=== PATIENT | male | born 1990 | race Caucasian/White ===

== ENCOUNTER 2016-06-16 23:03 | Emergency (ER) | payer SELFPAY ==
[2016-06-16 23:13] VITALS: BP 154/89; PULSE 79; RESP 14; TEMP 97.4; O2SAT 97
--- NOTE | 2016-06-17 00:07 | C.PDOC ---
History Of Present Illness Patient is a 26 year old male who presents to the ER with a complaint of right sided back pain with radiation to the right buttocks and leg for the past 2 weeks. Patient also reports having paresthesia. 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 Denies urinary incontinence, bowel incontinence, or recent trauma. Time Seen by Provider: 06/16/16 23:20 Chief Complaint (Nursing): Lower Extremity Problem/Injury History Per: Patient History/Exam Limitations: no limitations Onset/Duration Of Symptoms: Days (2 weeks) Current Symptoms Are (Timing): Still Present Recent travel outside of the [place]: No Past Medical History Reviewed: Historical Data, Nursing Documentation, Vital Signs Vital Signs: Last Vital Signs Temp 97.4 F L 06/16/16 23:11 Pulse 79 06/16/16 23:11 Resp 14 06/16/16 23:11 BP 154/89 H 06/16/16 23:11 Pulse Ox 97 06/17/16 02:40 - Medical History PMH: Diabetes, HTN, Hypercholesterolemia Surgical History: No Surg Hx Family History: States: Unknown Family Hx - Social History Hx Tobacco Use: No Hx Alcohol Use: No Hx Substance Use: No - Immunization History Hx Tetanus Toxoid Vaccination: No Hx Influenza Vaccination: No Hx Pneumococcal Vaccination: No Review Of Systems Gastrointestinal: Negative for: Other (Bowel incontinence) Genitourinary: Negative for: Incontinence Musculoskeletal: Positive for: Back Pain (Right sided), Leg Pain (Right), Other (Right buttock pain) Physical Exam - Physical Exam Appears: Well, Non-toxic, No Acute Distress Skin: Normal Color, Warm, Dry Head: Atraumatic, Normacephalic Eye(s): bilateral: Normal Inspection, EOMI Nose: Normal Oral Mucosa: Moist Neck: Normal, Normal ROM, No Paracervical Tenderness, No Step Off Deformity, Supple Chest: Symmetrical Cardiovascular: Rhythm Regular Respiratory: Normal Breath Sounds Gastrointestinal/Abdominal: Soft, No Tenderness Back: No CVA Tenderness, No Vertebral Tenderness, Paraspinal Tenderness (right sided, lumbar and buttocks) Extremity: Normal ROM Neurological/Psych: Oriented x3, Normal Speech, Normal Motor, Normal Sensation ( (-) Saddle anesthesia. Though pt notes right leg feels "different") Gait: Steady ED Course And Treatment O2 Sat by Pulse Oximetry: 97 (Room air) Pulse Ox Interpretation: Normal Progress Note: Toradol IVP administered. LS spine x-ray ordered, no acute abnormalies found in results. On reevaluation, patient's pain has improved and his is able to ambulate normally. Case discussed with Dr. Rivers, we both agreed to discharge patient home, patient advised to follow up with PMD. Disposition - Disposition Referrals: [facility] at [facility] [Outside] Disposition: HOME/ ROUTINE Disposition Time: 00:05 Condition: STABLE Additional Instructions: Follow up with your PM Din 1-2 days for re-evaluation and possible MRI. Return to ER right away if symptoms persist or worsen, including but limited to unable to control your urine or bowel movements or change in sensation. Prescriptions: Cyclobenzaprine [Cyclobenzaprine HCl] 10 mg PO TID #20 tab Naproxen [Naprosyn] 1 tab PO BID PRN #20 tab PRN Reason: Pain Instructions: Sciatica (ED) - Clinical Impression Clinical Impression: Sciatica of right side - Scribe Statement The provider has reviewed the documentation as recorded by the Ottonielibchristiano Gonzales All medical record entries made by the Ottonielibchristiano were at my direction and personally dictated by me. I have reviewed the chart and agree that the record accurately reflects my personal performance of the history, physical exam, medical decision making, and the department course for this patient. I have also personally directed, reviewed, and agree with the discharge instructions and disposition.
--- NOTE | 2016-06-17 09:30 | RAD ---
PROCEDURE: Radiographs of the Lumbar Spine. HISTORY: pain COMPARISON: No prior. FINDINGS: BONES: Normal alignment. No listhesis. No fracture. DISC SPACES: Unremarkable. OTHER FINDINGS: None. IMPRESSION: No radiographic evidence of acute fracture or subluxation.
== END 2016-06-17 00:12 | disposition home or self-care (01) ==
LOC: C.ER 23:03
DX: M54.31 Sciatica, right side (principal)
CPT/HCPCS: 72100; 96372; 99284; J1885

== ENCOUNTER 2017-04-19 18:50 | Emergency (ER) | payer OTHER ==
[2017-04-19 18:56] VITALS: BMI 33.1
[2017-04-19 18:59] VITALS: BP 143/83; PULSE 110; RESP 20; TEMP 98.1; O2SAT 98
[2017-04-19] MEDS ORDERED: Tetracaine 0.5% Ophth (OR ONLY) ONE (19:22)
[2017-04-19] MEDS ORDERED: Fluorescein 1 mg Ophthalmic Strip ONE (19:22)
--- NOTE | 2017-04-19 19:44 | C.PDOC ---
Time Seen by Provider: 04/19/17 19:11 Chief Complaint (Nursing): Eye Problem Past Medical History Vital Signs: Last Vital Signs Temp 98.1 F 04/19/17 18:56 Pulse 110 H 04/19/17 18:56 Resp 20 04/19/17 18:56 BP 143/83 04/19/17 18:56 Pulse Ox 98 04/19/17 18:56 - Medical History PMH: Diabetes, HTN, Hypercholesterolemia Denies: Chronic Kidney Disease Family History: States: Unknown Family Hx Denies: [place], CAD - Social History Hx Tobacco Use: No Hx Alcohol Use: No Hx Substance Use: No - Immunization History Hx Tetanus Toxoid Vaccination: No Hx Influenza Vaccination: No Hx Pneumococcal Vaccination: No ED Course And Treatment O2 Sat by Pulse Oximetry: 98 Disposition - Disposition
--- NOTE | 2017-04-19 19:44 | C.PDOC ---
History Of Present Illness 27-year-old male, presents to the emergency department with complaints of tearing and discomfort in left eye. 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 Notes he wears glasses.Denies diplopia, headache. n/v, loc, bleeding. Time Seen by Provider: 04/19/17 19:11 Chief Complaint (Nursing): Eye Problem History Per: Patient History/Exam Limitations: no limitations Past Medical History Reviewed: Historical Data, Nursing Documentation, Vital Signs Vital Signs: Last Vital Signs Temp 98.1 F 04/19/17 18:56 Pulse 110 H 04/19/17 18:56 Resp 20 04/19/17 20:06 BP 143/83 04/19/17 18:56 Pulse Ox 98 04/19/17 21:19 - Medical History PMH: Diabetes, HTN, Hypercholesterolemia Family History: States: No Known Family Hx - Social History Hx Tobacco Use: No Hx Alcohol Use: No Hx Substance Use: No - Immunization History Hx Tetanus Toxoid Vaccination: No Hx Influenza Vaccination: No Hx Pneumococcal Vaccination: No Review Of Systems Eyes: Positive for: Pain Physical Exam - Physical Exam Appears: Non-toxic, No Acute Distress Skin: Warm, Dry, No Rash Head: Normacephalic Eye(s): bilateral: PERRL, EOMI, right: Other ((+) fluorescein uptake to right eye, no hyphema, no discharge, no injection), left: Normal Inspection Nose: Normal Oral Mucosa: Moist Neck: Normal ROM, Supple Chest: Symmetrical Respiratory: No Accessory Muscle Use ED Course And Treatment O2 Sat by Pulse Oximetry: 98 (RA) Pulse Ox Interpretation: Normal Progress Note: Discussed wound care and instructed to follow up with eye doctor tomorrow for re-evalaution. Disposition - Disposition Referrals: Ishan Espinal MD [Staff Provider] - Disposition: HOME/ ROUTINE Disposition Time: 19:45 Condition: STABLE Additional Instructions: you were diagnosed with the cut in your eye. You should follow up with the eye doctor tomorrow for further evaluation. Return to ER if symptoms persist or worsen. Prescriptions: Ofloxacin Ophth 0.3% [Ocuflox Ophth 0.3%] 1 drop OU QID #1 bottle Instructions: Corneal Abrasion Forms: [employer] (Bangladeshi) - Clinical Impression Clinical Impression: Corneal abrasion - Scribe Statement The provider has reviewed the documentation as recorded by the Scribe (Katherine Little) All medical record entries made by the Scribe were at my direction and personally dictated by me. I have reviewed the chart and agree that the record accurately reflects my personal performance of the history, physical exam, medical decision making, and the department course for this patient. I have also personally directed, reviewed, and agree with the discharge instructions and disposition.
== END 2017-04-19 20:06 | disposition home or self-care (01) ==
LOC: C.ER 18:50
DX: S05.02XA Injury of conjunctiva and corneal abrasion without foreign body, left eye, initial encounter (principal); W50.0XXA Accidental hit or strike by another person, initial encounter; Y93.67 Activity, basketball

== ENCOUNTER 2017-12-10 20:25 | Emergency (ER) | payer SELFPAY ==
[2017-12-10 20:25] VITALS: BMI 33.1
[2017-12-10 20:44] VITALS: BP 165/101; PULSE 96; TEMP 98.5; O2SAT 98
--- NOTE | 2017-12-10 20:54 | C.PDOC ---
History Of Present Illness 27 year old male presents to the ED for evaluation of a frontal headache which began earlier today. Patient states symptoms are mostly behind right left>right eye. He refilled his blood pressure medication today. Patient denies fever, chills, and nasal discharge. Time Seen by Provider: 12/10/17 20:45 Chief Complaint (Nursing): Headache History Per: Patient History/Exam Limitations: no limitations Onset/Duration Of Symptoms: Hrs Current Symptoms Are (Timing): Still Present Quality: Aching Past Medical History Reviewed: Historical Data, Nursing Documentation, Vital Signs Vital Signs: Last Vital Signs Temp 98.5 F 12/10/17 20:31 Pulse 96 H 12/10/17 20:31 Resp 20 12/10/17 20:31 BP 165/101 H 12/10/17 20:31 Pulse Ox 98 12/10/17 20:31 - Medical History PMH: Diabetes, HTN, Hypercholesterolemia Denies: Chronic Kidney Disease Surgical History: No Surg Hx Family History: States: Unknown Family Hx Denies: [place], CAD - Social History Hx Tobacco Use: No Hx Alcohol Use: No Hx Substance Use: Yes - Immunization History Hx Tetanus Toxoid Vaccination: No Hx Influenza Vaccination: No Hx Pneumococcal Vaccination: No Review Of Systems Constitutional: Negative for: Fever, Chills ENT: Negative for: Nose Discharge Neurological: Positive for: Headache Physical Exam - Physical Exam Appears: Non-toxic, No Acute Distress Skin: Normal Color, Warm, Dry Head: Atraumatic, Normacephalic Eye(s): bilateral: Normal Inspection Ear(s): Bilateral: Normal Nose: No Discharge, Other (increased nasal pasage erythema, left>right. kissing turbinates ) Throat: Normal, No Erythema, No Exudate Neck: Supple Chest: Symmetrical, No Deformity, No Tenderness Cardiovascular: Rhythm Regular, No Murmur Respiratory: Normal Breath Sounds, No Rales, No Rhonchi, No Wheezing Extremity: Normal ROM, Capillary Refill (less than 2 seconds ) Neurological/Psych: Oriented x3, Normal Speech, Normal Cognition ED Course And Treatment O2 Sat by Pulse Oximetry: 98 (on RA) Pulse Ox Interpretation: Normal Progress Note: Motrin PO, Vasotec PO and Prednisone PO given. Medical Decision Making Medical Decision Making: sinus headache no photophobia Bp elevated due to BLAKE normal neuro Disposition Doctor Will See Patient In The: Office Counseled Patient/Family Regarding: Studies Performed, Diagnosis - Disposition Referrals: [facility] [Outside] [facility] [Outside] [facility] [Outside] [facility] [Outside] Disposition: HOME/ ROUTINE Disposition Time: 20:54 Condition: GOOD Additional Instructions: Flonase 1 spray to each nostril every 12 hours- decreases nasal passage inflammation Motrin/advil/Ibuprofen 600 mg every 12 hours good for sinus headache pain pseudafed 30 mg every 6 hours as needed may increase blood pressure slightly. excellent nasal passage decongestant You were given motrin 600 mg and Prednisone 20 mg in ED the prednisone is NOT continued due to diabetes and the Flonase will be active by tomorrow Follow-up in our outpatient Clinic as needed. Prescriptions: Fluticasone Nasal [Flonase] 1 actuation NS DAILY #1 spr Instructions: Headache, Adult Forms: [employer] (Korean) - Clinical Impression Clinical Impression: Headache - Scribe Statement The provider has reviewed the documentation as recorded by the Scribe (Giselle Henderson) Provider Attestation: All medical record entries made by the Scribe were at my direction and personally dictated by me. I have reviewed the chart and agree that the record accurately reflects my personal performance of the history, physical exam, medical decision making, and the department course for this patient. I have also personally directed, reviewed, and agree with the discharge instructions and disposition.
[2017-12-10 21:11] VITALS: RESP 16
== END 2017-12-10 21:10 | disposition home or self-care (01) ==
LOC: C.ER 20:25
DX: R51 Headache (principal)

== ENCOUNTER 2017-12-15 10:10 | Emergency (ER) | payer OTHER ==
[2017-12-15 10:10] VITALS: BMI 33.1
[2017-12-15 10:18] VITALS: O2SAT 97
[2017-12-15] MEDS ORDERED: DiphenhydrAMINE 50 mg/ml Inj IVP STA (10:57)
--- NOTE | 2017-12-15 10:57 | C.PDOC ---
History Of Present Illness 27-year-old male, PMHx includes Hypertension and Diabetes, presents to the emergency department with complaints of a frontal headache which is associated with photophobia and ongoing for the past few days. Patient states he was seen in ED five days ago, and given a medication, but symptoms have persisted. Patient states symptoms are mostly behind left>right eye. Patient denies fever, chills, neck pain, numbness, weakness, vision changes, or trauma. Time Seen by Provider: 12/15/17 10:24 Chief Complaint (Nursing): Headache History Per: Patient History/Exam Limitations: no limitations Pain Scale Rating Of: 7 Quality: Aching Associated Symptoms: Photophobia Recent travel outside of the [place]: No Past Medical History Reviewed: Historical Data, Nursing Documentation, Vital Signs Vital Signs: Last Vital Signs Temp 97.8 F 12/15/17 10:14 Pulse 87 12/15/17 10:14 Resp 19 12/15/17 10:14 BP 156/94 H 12/15/17 10:14 Pulse Ox 97 12/15/17 10:14 - Medical History PMH: Diabetes, HTN, Hypercholesterolemia Family History: States: No Known Family Hx Denies: [place], CAD - Social History Hx Tobacco Use: No Hx Alcohol Use: No Hx Substance Use: No - Immunization History Hx Tetanus Toxoid Vaccination: No Hx Influenza Vaccination: No Hx Pneumococcal Vaccination: No Review Of Systems Constitutional: Negative for: Fever Gastrointestinal: Negative for: Nausea, Vomiting Musculoskeletal: Negative for: Neck Pain, Back Pain Neurological: Positive for: Headache. Negative for: Weakness, Numbness Physical Exam - Physical Exam Appears: Non-toxic, No Acute Distress Skin: Warm, Dry, No Rash Head: Normacephalic, Tenderness (frontal sinus tenderness), Other (No temporal artery tenderness) Eye(s): bilateral: Normal Inspection, PERRL, EOMI Ear(s): Bilateral: Normal Nose: Normal Oral Mucosa: Moist Lips: Normal Appearing Throat: No Erythema, No Exudate Neck: Normal ROM, Supple Lymphatic: Normal Exam Chest: Symmetrical, No Tenderness Cardiovascular: Rhythm Regular, No Friction Rub, No Murmur Respiratory: Normal Breath Sounds, No Accessory Muscle Use, No Stridor, No Whe ezing Gastrointestinal/Abdominal: Soft, No Tenderness Back: Normal Inspection, No CVA Tenderness Extremity: Normal ROM, No Swelling Neurological/Psych: Oriented x3, Normal Speech, Normal Cognition, Normal Cranial Nerves, Normal Motor Gait: Steady ED Course And Treatment - Laboratory Results Result Diagrams: 12/15/17 11:18 12/15/17 11:18 O2 Sat by Pulse Oximetry: 97 Pulse Ox Interpretation: Normal (RA) Medical Decision Making Medical Decision Making: Old records reviewed, the patient was seen in the ED on 12/10/17 for similar symptoms. The patient was diagnosed with sinusitis and discharged home with a nasal spray and medications for pain. Labs are WNLs. CT HEad shows no acute abnormalities but possible sinusitis. Will treat with augmentin. On re-exam, the patient reports improvement of symptoms. Lungs are CTA, heart is RRR, Abdomen is soft, non-tender and thje patient is tolerating PO well. Pt is ambulatory in the ED with steady gait. Follow up with the medical doctor within 1-2 days. Return if worsened. Disposition - Disposition Referrals: Beau Groves MD [Staff Provider] - Irvin Franz MD [Staff Provider] - Disposition: HOME/ ROUTINE Disposition Time: 13:39 Condition: STABLE Additional Instructions: Follow up with the medical doctor within 1-2 days. Return if worsened. Prescriptions: Amoxicillin/Clavulanate [Augmentin 875 MG-125 MG] 1 tab PO BID #14 tab Ibuprofen [Motrin] 600 mg PO TID #21 tab Instructions: Sinusitis, Adult (DC) Forms: [facility] (Kinyarwanda) - Clinical Impression Clinical Impression: Sinusitis - Scribe Statement The provider has reviewed the documentation as recorded by the Scribe (Katherine Little) All medical record entries made by the Scribe were at my direction and personally dictated by me. I have reviewed the chart and agree that the record accurately reflects my personal performance of the history, physical exam, [facility] decision making, and the department course for this patient. I have also personally directed, reviewed, and agree with the discharge instructions and disposition.
[2017-12-15] MEDS ORDERED: Sodium Chloride 0.9% 500 ML IV ONE (10:58)
[2017-12-15] MEDS ORDERED: DiphenhydrAMINE 50 mg/ml Inj ONE (11:08)
[2017-12-15] MEDS ORDERED: Sodium Chloride 0.9% 1,000 ML ONE (11:08)
[2017-12-15 11:22] LABS: BASO # 0.1 K/uL (0.0-0.2); BASO % 1.3 % (0.0-2.0); EOS # 0.1 K/uL (0.0-0.7); EOS % 1.5 % (0.0-4.0); HEMOGLOBIN 14.5 g/dL (12.0-18.0); LYMPH # 2.1 K/uL (1.0-4.3); MEAN CELL VOLUME 66.7 fL (80.0-94.0); MEAN CORPUSCULAR HEMOGLOBIN 21.4 pg (27.0-31.0); MEAN PLATELET VOLUME 7.3 fL (7.2-11.7); MONO # 0.9 K/uL (0.0-0.8); MONO % 9.6 % (0.0-10.0); NEUT # 5.8 K/uL (1.8-7.0); NEUT % 64.6 % (50.0-75.0); NRBC % 0.1 % (0.0-2.0); RBC 6.81 Mil/uL (4.40-5.90); RED CELL DISTRIBUTION WIDTH 14.7 % (11.5-14.5); WHITE BLOOD COUNT 8.9 K/uL (4.8-10.8)
[2017-12-15 11:38] LABS: ALB/GLOB RATIO 1.3 (1.0-2.1); ALBUMIN 4.4 g/dL (3.5-5.0); ALT/SGPT 23 U/L (21-72); AST/SGOT 26 U/L (17-59); BLOOD UREA NITROGEN 13 mg/dL (9-20); CALCIUM 9.2 mg/dl (8.6-10.4); GFR NON-AFRICAN AMERICAN > 60
[2017-12-15 12:08] VITALS: BP 138/74; PULSE 84; RESP 20; TEMP 98.9
--- NOTE | 2017-12-15 13:12 | CT ---
Date of service: 12/15/2017 PROCEDURE: CT HEAD WITHOUT CONTRAST. HISTORY: Headache x1 week COMPARISON: None available. TECHNIQUE: Axial computed tomography images were obtained through the head/brain without intravenous contrast. Radiation dose: Total exam DLP = 1124.64 mGy-cm. This CT exam was performed using one or more of the following dose reduction techniques: Automated exposure control, adjustment of the mA and/or kV according to patient size, and/or use of iterative reconstruction technique. FINDINGS: HEMORRHAGE: No intracranial hemorrhage. BRAIN: No mass effect or edema. No atrophy or chronic microvascular ischemic changes. VENTRICLES: Unremarkable. No hydrocephalus. CALVARIUM: Unremarkable. PARANASAL SINUSES: Frontal sinuses are hypoplastic/underpneumatized.. The maxillary antra and sphenoid sinuses are diminutive.. There is complete opacification of the left maxillary antrum and near complete opacification visualized portions of the right maxillary antrum. Subtotal opacification ethmoid air complex. MASTOID AIR CELLS: The right mastoid air complexes are mildly underpneumatized and slightly sclerotic compared to the left side OTHER FINDINGS: None. IMPRESSION: No acute intracranial hemorrhage.
[2017-12-15] MEDS ORDERED: Amoxicillin-Clav 875-125 mg Tab PO STA (13:15)
[2017-12-15] MEDS ORDERED: Amoxicillin-Clav 875-125 mg Tab PO ONE (13:28)
== END 2017-12-15 13:52 | disposition home or self-care (01) ==
LOC: C.ER 10:10
DX: J32.9 Chronic sinusitis, unspecified (principal)
CPT/HCPCS: 70450; 80053; 85025; 96361; 96374; 96375; 99285; J1200; J1885; J2765; J7040

== ENCOUNTER 2018-03-04 21:36 | Emergency (ER) | payer SELFPAY ==
[2018-03-04 21:36] VITALS: BMI 33.1
[2018-03-04] MEDS ORDERED: Promethazine/Cod 6.25mg-10mg/5ml Syr UD PO STA (23:00)
[2018-03-04] MEDS ORDERED: Sodium Chloride 0.9% 1,000 ML IV ONE (23:00)
[2018-03-04] MEDS ORDERED: Sodium Chloride 0.9% 1,000 ML ONE (23:11)
[2018-03-04] MEDS ORDERED: Promethazine/Cod 6.25mg-10mg/5ml Syr UD ONE (23:11)
[2018-03-04 23:22] LABS: BASO % 0.4 % (0.0-2.0); EOS # 0.1 K/uL (0.0-0.7); EOS % 1.3 % (0.0-4.0); HEMOGLOBIN 14.7 g/dL (12.0-18.0); LYMPH # 0.9 K/uL (1.0-4.3); LYMPH % 9.1 % (20.0-40.0); MEAN CELL VOLUME 67.3 fL (80.0-94.0); MEAN CORPUSCULAR HEMOGLOBIN 20.9 pg (27.0-31.0); MEAN CORPUSCULAR HGB CONC 31.1 g/dL (33.0-37.0); MEAN PLATELET VOLUME 8.1 fL (7.2-11.7); MONO # 1.1 K/uL (0.0-0.8); MONO % 11.3 % (0.0-10.0); NEUT # 7.5 K/uL (1.8-7.0); NEUT % 77.9 % (50.0-75.0); NRBC % 0.1 % (0.0-2.0); PLATELET COUNT 300 K/uL (130-400); RBC 7.03 Mil/uL (4.40-5.90); RED CELL DISTRIBUTION WIDTH 15.4 % (11.5-14.5); WHITE BLOOD COUNT 9.6 K/uL (4.8-10.8)
[2018-03-04 23:38] LABS: ALB/GLOB RATIO 1.3 (1.0-2.1); ALBUMIN 4.9 g/dL (3.5-5.0); ALT/SGPT 28 U/L (21-72); AST/SGOT 38 U/L (17-59); BLOOD UREA NITROGEN 9 mg/dL (9-20); CALCIUM 9.3 mg/dl (8.6-10.4); GFR NON-AFRICAN AMERICAN > 60
[2018-03-04 23:53] LABS: ANISOCYTOSIS MODERATE; BANDS 1 % (0-2); LYMPHOCYTE 11 % (20-40); MICROCYTOSIS MODERATE; MONOCYTE 8 % (0-10); NEUTROPHIL 78 % (50-75); PLATELET ESTIMATE NORMAL (NORMAL); REACTIVE LYMPHOCYTES 2 % (0-0); TOTAL CELLS COUNTED 100
[2018-03-05 00:21] VITALS: BP 129/63; PULSE 65; RESP 20; TEMP 98.8; O2SAT 97
--- NOTE | 2018-03-05 00:26 | C.PDOC ---
History Of Present Illness 28 y/o male presents to the ED complaining of generalized bodyaches, fever, and cough since earlier today. Patient denies any abdominal pain, urinary complaints, SOB, or chest pain. Reports he also vomited x1 today. Patient is also complaining of fatigue/malaise. He has PMHx of diabetes and HTN, noncompliant with meds for 1 month. Time Seen by Provider: 03/04/18 22:39 Chief Complaint (Nursing): Fever History Per: Patient History/Exam Limitations: no limitations Onset/Duration Of Symptoms: Hrs Current Symptoms Are (Timing): Still Present Location Of Pain: Diffuse Myalgias Associated Symptoms: Fever, Cough, Myalgias Past Medical History Reviewed: Historical Data, Nursing Documentation, Vital Signs Vital Signs: Last Vital Signs Temp 98.8 F 03/05/18 00:21 Pulse 65 03/05/18 00:21 Resp 20 03/05/18 00:21 BP 129/63 03/05/18 00:21 Pulse Ox 97 03/05/18 00:21 - Medical History PMH: Diabetes, HTN, Hypercholesterolemia Denies: Chronic Kidney Disease Family History: States: Unknown Family Hx Denies: [place], CAD - Social History Hx Tobacco Use: No Hx Alcohol Use: No Hx Substance Use: No - Immunization History Hx Tetanus Toxoid Vaccination: No Hx Influenza Vaccination: No Hx Pneumococcal Vaccination: No Review Of Systems Except As Marked, All Systems Reviewed And Found Negative. Constitutional: Positive for: Fever, Malaise, Other (Bodyaches) Cardiovascular: Negative for: Chest Pain Respiratory: Positive for: Cough. Negative for: Shortness of Breath Gastrointestinal: Negative for: Vomiting, Diarrhea Skin: Negative for: Rash Neurological: Negative for: Headache, Dizziness Physical Exam - Physical Exam Appears: Non-toxic, No Acute Distress, Other (Febrile, temp of 102 on arrival) Skin: Warm, Dry, No Rash Head: Atraumatic, Normacephalic Eye(s): bilateral: Normal Inspection, PERRL, EOMI Nose: Normal Oral Mucosa: Moist Throat: Normal, No Erythema, No Exudate Neck: Normal ROM Chest: Symmetrical Cardiovascular: Rhythm Regular, No Murmur Respiratory: Normal Breath Sounds, No Rales, No Rhonchi, No Wheezing Gastrointestinal/Abdominal: Soft, No Tenderness, No Distention Extremity: Bilateral: Atraumatic, Normal ROM Neurological/Psych: Oriented x3 Gait: Steady ED Course And Treatment - Laboratory Results Result Diagrams: 03/04/18 11:17 03/04/18 23:00 Lab Results: Total Bilirubin 1.0 mg/dL (0.2-1.3) 03/04/18 23:00 AST 38 U/L (17-59) 03/04/18 23:00 ALT 28 U/L (21-72) 03/04/18 23:00 Alkaline Phosphatase 79 U/L (38-126) 03/04/18 23:00 Total Protein 8.5 g/dL (6.3-8.3) H 03/04/18 23:00 Albumin 4.9 g/dL (3.5-5.0) 03/04/18 23:00 Globulin 3.7 gm/dL (2.2-3.9) 03/04/18 23:00 Albumin/Globulin Ratio 1.3 (1.0-2.1) 03/04/18 23:00 O2 Sat by Pulse Oximetry: 97 (RA) Pulse Ox Interpretation: Normal Progress Note: Labs and flu swab ordered. IVF, 30mg IV Toradol, and 10ml PO Phenergan/Codeine given. Patient reports complete resolution of symptoms after meds given. VS improved. All labs reviewed - pt with hyperglycemia 265, not in dka, normal anion gap. Patient also given 1 dose of Metformin PO in the ED. 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 Counseled patient regarding the importance of compliance with medication. Will treat patient empirically for the flu, return precautions discussed. Reevaluation Time: 00:21 Reassessment Condition: Improved Disposition - Disposition Referrals: [facility] [Outside] Disposition: HOME/ ROUTINE Disposition Time: 00:23 Condition: STABLE Additional Instructions: Increase PO fluids/ Bed Rest Take medications as directed Please take all your chronic medications Follow up with PMD Return to ER if persistently hih fever, abdominal pain, SOB, or worse Prescriptions: Benzonatate [Tessalon Perles] 200 mg PO TID #14 sgl Ibuprofen [Motrin Tab] 800 mg PO QID #20 tab Oseltamivir Cap [Tamiflu] 75 mg PO BID #10 cap Instructions: Flu, Adult (DC) Forms: [employer] (Hungarian), Work Excuse - Clinical Impression Clinical Impression: Influenza-like illness, Fever - PA / CRYSTALIZER / Resident Statement MD/DO has reviewed & agrees with the documentation as recorded. - Scribe Statement The provider has reviewed the documentation as recorded by the Scribchristiano Segundo All medical record entries made by the Ottonielibchristiano were at my direction and personally dictated by me. I have reviewed the chart and agree that the record accurately reflects my personal performance of the history, physical exam, medical decision making, and the department course for this patient. I have also personally directed, reviewed, and agree with the discharge instructions and disposition.
== END 2018-03-05 00:54 | disposition home or self-care (01) ==
LOC: C.ER 21:36
DX: J11.1 Influenza due to unidentified influenza virus with other respiratory manifestations (principal); I10 Essential (primary) hypertension; E11.9 Type 2 diabetes mellitus without complications; E78.00 Pure hypercholesterolemia, unspecified; Z91.14 Patient's other noncompliance with medication regimen
CPT/HCPCS: 80053; 82948; 85025; 87804; 96361; 96374; 99285; J1885; J7030